=== PATIENT | male | born 1955 | race Two or more races ===

== ENCOUNTER → 2024-09-03 | Emergency (ER) | payer OTHER ==
[~2024-09-03] VITALS: Ht 162.6 cm; Wt 95.3 kg
[~2024-09-03] MED LIST: DICLOFENAC SODI75 MG PO; FENOFIBRATE160 MG; HUMALOG MIX 75/10 ML; HYZAAR 100-121 UDTAB; NORVASC 5MG TAB PO; NORVASC5 MG; ORPH100T PO; SODIUM POLYSTYRENE SULFONATE 15 GM/60 ML PO; ZOCOR40 MG
== END | disposition left against medical advice (07) ==
LOC: ER 23:35
DX: Z53.21 Procedure and treatment not carried out due to patient leaving prior to being seen by health care provider (principal)